=== PATIENT | male | born 1955 | race Caucasian/White ===

== ENCOUNTER 2019-07-10 23:36 | Inpatient (IN) | payer OTHER ==
[2019-07-10 23:42] VITALS: BMI 29.7
[2019-07-11] MEDS: Ondansetron PF 4 MG/2 ML Vial IVP PRN (03:05)
[2019-07-11] MEDS: Morphine 4 MG/ML VIAL SLOW IVP PRN ×3 (03:06→19:51)
[2019-07-11] MEDS: Lactated Ringer's 1,000 ML IV SCH ×2 (03:07→07:57)
[2019-07-11] MEDS ORDERED: Morphine 2 MG/ML SYRINGE SLOW IVP PRN (08:50)
[2019-07-11] MEDS ORDERED: Acetaminophen 325 MG TAB PO PRN (08:51)
[2019-07-11] MEDS ORDERED: Ondansetron ODT 4 MG TAB PO PRN (08:51)
[2019-07-11] MEDS ORDERED: Senokot S 8.6-50 MG TAB PO PRN (08:51)
[2019-07-11] MEDS ORDERED: Famotidine 20 MG TAB PO SCH (09:00)
[2019-07-11] MEDS ORDERED: Famotidine/PF 20 mg/2ml Vial SLOW IVP SCH (09:00)
[2019-07-11 09:31] LABS: Magnesium 2.1 mg/dL (1.6-2.6); Phosphorus 2.6 mg/dL (2.3-4.7)
[2019-07-11 09:33] LABS: ALT (SGPT) 19 U/L (8-55); AST (SGOT) 14 U/L (5-34); Albumin 3.7 g/dL (3.4-4.8); Alkaline Phosphatase 63 U/L (40-110); Anion Gap 9 mmol/L (10-20); BUN (Urea Nitrogen) 15 mg/dL (8.4-25.7); Bilirubin, Total 0.6 mg/dL (0.2-1.2); Calc. Creatinine Clearance 78 mL/min (70-130); Calcium 8.5 mg/dL (7.8-10.44); Carbon Dioxide 31 mmol/L (23-31); Chloride 102 mmol/L (98-107); Estimated GFR-MDRD 68; Globulin 3.6 g/dL (2.4-3.5); Glucose 106 mg/dL (80-115); Lipase 346 U/L (8-78); Potassium 4.1 mmol/L (3.5-5.1); Protein, Total 7.3 g/dL (5.8-8.1); Sodium 138 mmol/L (136-145)
[2019-07-11] MEDS: Carvedilol 3.125 MG TAB PO SCH ×2 (09:36→20:05)
[2019-07-11 09:37] LABS: #Lymphocytes 0.9 thou/uL (1.20-3.40); #Monocytes 1.1 thou/uL (0.11-0.59); #Neutrophils 9.9 thou/uL (1.40-6.50); %Basophils 0.1 % (0.0-1.0); %Eosinophils 0.1 % (0.0-10.0); %Lymphocytes 7.3 % (21.0-51.0); %Monocytes 9.3 % (0.0-10.0); %Neutrophils 83.1 % (42.0-75.0); Hemoglobin 10.3 g/dL (14.0-18.0); Hypochromia SLIGHT = 6-15 cells (100X) (0-5/hpf); MDiff Complete? YES; Mean Corpuscular Hemoglobin 20.9 pg (27.0-31.0); Mean Corpuscular Volume 67.6 fL (78.0-98.0); Mean Platelet Volume 12.8 fL (7.4-10.4); Microcytosis MODERATE=15-30 cells (100X) (0-5/hpf); Ovalocytes SLIGHT = 2-5 cells (100X) (0-1/hpf); Platelet Count 181 thou/uL (130-400); Platelet Morphology Comment Appears Adequate; Polychromasia SLIGHT = 2-3 cells (100X) (0-2/hpf); RBC Distribution Width 16.8 % (11.5-14.5); Red Blood Cell (RBC) Count 4.93 mill/uL (4.70-6.10); White Blood Cell (WBC) Count 11.9 thou/uL (4.8-10.8)
[2019-07-11] MEDS ORDERED: Dextrose 5 %-0.45 % NaCl 1,000 ML IV SCH (10:00)
--- NOTE | 2019-07-11 10:36 | HP ---
PRIMARY CARE PHYSICIAN: The patient is an inmate. CHIEF COMPLAINT: Abdominal discomfort with rectal bleeding of 2 days duration. HISTORY OF PRESENT ILLNESS: The patient is a 63-year-old male with hemorrhoids, presented to the emergency room at [facility] with above complaints. He was transferred to this facility since there were no beds at [facility]. Over the last 2 days, the patient developed abdominal discomfort that was sudden in onset, progressively getting worse. The pain started after eating at the facility. It was epigastric, radiating to his back. It was moderate to severe in intensity. He had several episodes of vomiting and felt nauseous the whole time. The pain was worse with deep breathing and food. He also noticed some bright red blood when he was having bowel movement on and off over the last 2 days. He also had some abdominal cramping. He had EGD and colonoscopy done in 2012 before he was incarcerated. He stated that the EGD and colonoscopy were in normal limits except for hemorrhoids. He is not sure about any surgery for hemorrhoids. PAST MEDICAL HISTORY: 1. Hypertension. 2. Hemorrhoids. 3. Hyperlipidemia. 4. Chronic anemia. PAST SURGICAL HISTORY: 1. EGD. 2. Colonoscopy. ALLERGIES: NO KNOWN DRUG ALLERGIES. CURRENT HOME MEDICATIONS: 1. Carvedilol 3.125 b.i.d. 2. Hydrochlorothiazide 12.5 daily. FAMILY HISTORY: Positive for mother with stomach cancer and heart disease. SOCIAL HISTORY: The patient has a history of heavy alcohol in the past. He is a former smoker as well. No current use of tobacco, alcohol, or drug use. REVIEW OF SYSTEMS: All other review of systems was reviewed and was found negative. PHYSICAL EXAMINATION: VITAL SIGNS: Vital signs at [facility], temperature 98.7, respirations of 18, pulse rate of 81, blood pressure of 165/85 with pain level of 6/10. GENERAL: A 63-year-old male, in mild distress due to abdominal discomfort. HEENT: Head, atraumatic and normocephalic. Sclerae anicteric. Moist mucous membranes. No oral lesion. NECK: Supple. No JVD. No carotid bruit. LUNGS: Clear to auscultation bilaterally. No wheezing, rales, or rhonchi. HEART: S1 and S2 present. Regular rate and rhythm. No rubs or gallops. ABDOMEN: Soft. Bowel sounds present. There is significant tenderness on palpation in the epigastric area with voluntary guarding. No guarding or rigidity. Rectal examination at the emergency room showed scant amount of brown stool in the rectal vault. EXTREMITIES: No edema or calf tenderness. NEUROLOGIC: Grossly nonfocal. Moves all 4 extremities. PSYCHIATRY: Alert, awake, and oriented x3. SKIN: Warm and dry. LYMPH NODES: No palpable lymph nodes in the neck. PERIPHERAL VASCULAR: Radial pulses palpable bilaterally. MUSCULOSKELETAL: No joint swelling or tenderness. LABORATORY FINDINGS: WBC 11.3 with hemoglobin 10.8, hematocrit 36, platelet 192. Chemistry showed sodium 139, potassium 4.1, chloride 100, bicarb 31, BUN 19, creatinine of 1.3, albumin 3.6, bilirubin 0.5 with AST 25, ALT 41, alkaline phosphatase 79, osmolality 282. Prothrombin time 10.8, INR 1.1. Lipase was 4195. CT scan of the abdomen at [facility] was consistent with acute pancreatitis with possible small hemangioma of the liver. IMPRESSION: 1. Acute pancreatitis of unclear etiology. 2. Rectal bleeding, suspected to be due to hemorrhoids. 3. Chronic hypochromic microcytic anemia. 4. Hypertension. 5. Hyperlipidemia. 6. Suspected small hemangioma of the liver. Primary care physician advised to follow. PLAN: The patient will be monitored on the medical floor. He will be kept n.p.o. We will recheck labs today. We will continue IV fluids. Consult Gastroenterology. IV morphine for pain control. Recheck labs in a.m. Check iron profile. Plan of care was discussed with the patient in detail. He stated understanding. We will also obtain EGD and colonoscopy report from 2012 at outside facility. Job ID: [id number]
[2019-07-11 13:25] LABS: Iron 12 ug/dL (65-175); Iron Binding Capacity, Total 259 mcg/dL (261-462)
[2019-07-11] MEDS: Dextrose 5 % And 0.9 % NaCl 1,000 ML IV SCH ×2 (14:05→21:45)
[2019-07-11] MEDS: Pantoprazole 40 MG VIAL IVP SCH (14:05)
--- NOTE | 2019-07-11 14:49 | ULT ---
Sonogram right upper quadrant HISTORY: Abdominal pain. Pancreatitis. FINDINGS: Shadowing stones are present throughout the gallbladder lumen. A small echogenic focus john g the posterior wall may represent an adherent stone or polyp. Patient was not tender over the gallbladder fossa at the time of the exam. No gallbladder wall thickening or pericholecystic fluid. C ommon duct is 0.5 cm. Liver unremarkable without focal mass or intrahepatic biliary dilatation. No free fluid. Pancreas is obscured by bowel gas. IMPRESSION: Cholelithiasis. No evidence of acute biliary obstruction.
[2019-07-12] MEDS: HYDROcodone/Acetaminophen 5/325 mg Tablet PO PRN ×3 (00:07→18:32)
[2019-07-12] MEDS: Dextrose 5 % And 0.9 % NaCl 1,000 ML IV SCH ×4 (00:08→21:04)
[2019-07-12 06:13] LABS: ALT (SGPT) 14 U/L (8-55); AST (SGOT) 11 U/L (5-34); Albumin 3.2 g/dL (3.4-4.8); Alkaline Phosphatase 57 U/L (40-110); Anion Gap 9 mmol/L (10-20); BUN (Urea Nitrogen) 12 mg/dL (8.4-25.7); Bilirubin, Total 0.6 mg/dL (0.2-1.2); Calc. Creatinine Clearance 83 mL/min (70-130); Calcium 7.8 mg/dL (7.8-10.44); Carbon Dioxide 27 mmol/L (23-31); Chloride 104 mmol/L (98-107); Estimated GFR-MDRD 73; Globulin 3.3 g/dL (2.4-3.5); Glucose 114 mg/dL (80-115); Lipase 104 U/L (8-78); Potassium 3.8 mmol/L (3.5-5.1); Protein, Total 6.5 g/dL (5.8-8.1); Sodium 136 mmol/L (136-145)
[2019-07-12 06:16] LABS: Phosphorus 1.5 mg/dL (2.3-4.7)
[2019-07-12] MEDS ORDERED: Sodium Phosphate 30 MMOL in Sodium Chloride 0.9% 250 ML 250 ML IVPB SCH (06:30)
[2019-07-12 06:40] LABS: #Lymphocytes 1.2 thou/uL (1.20-3.40); #Monocytes 1.4 thou/uL (0.11-0.59); #Neutrophils 8.5 thou/uL (1.40-6.50); %Basophils 0.4 % (0.0-1.0); %Eosinophils 0.4 % (0.0-10.0); %Lymphocytes 10.7 % (21.0-51.0); %Monocytes 12.3 % (0.0-10.0); %Neutrophils 76.2 % (42.0-75.0); Hemoglobin 9.7 g/dL (14.0-18.0); Hypochromia SLIGHT = 6-15 cells (100X) (0-5/hpf); MDiff Complete? YES; Mean Corpuscular HGB CONC 30.8 g/dL (32.0-36.0); Mean Corpuscular Hemoglobin 20.7 pg (27.0-31.0); Mean Corpuscular Volume 67.3 fL (78.0-98.0); Mean Platelet Volume 8.8 fL (7.4-10.4); Microcytosis SLIGHT = 6-15 cells (100X) (0-5/hpf); Platelet Count 185 thou/uL (130-400); RBC Distribution Width 16.6 % (11.5-14.5); Red Blood Cell (RBC) Count 4.69 mill/uL (4.70-6.10); White Blood Cell (WBC) Count 11.2 thou/uL (4.8-10.8)
[2019-07-12] MEDS: Morphine 4 MG/ML VIAL SLOW IVP PRN ×3 (07:18→21:04)
[2019-07-12] MEDS: Ondansetron PF 4 MG/2 ML Vial IVP PRN (07:18)
--- NOTE | 2019-07-12 07:46 | CON ---
DATE OF CONSULTATION: 07/11/2019 HISTORY OF PRESENT ILLNESS: Mr. Dee is a 63-year-old gentleman, incarcerated at [facility], who has became ill about 2 days ago. He reports that he began with nausea and vomiting and epigastric pain and vomited multiple times and he went to the bathroom and had some bright red blood per rectum. His pain radiated from the epigastrium to the back and had several episodes of vomiting. He has noted with eating and with deep breathing the pain has been worse. Presently, he feels about the same, although he is getting up and walk around, he is voiding. He has had no bleeding since admission here. He has had no vomiting since admission here. He denies any prior episodes of pancreatitis. Apparently, a CAT scan at [facility] was done and showed that. He does report he had EGD and colonoscopy in 2012 or 2013 for anemia and bleeding, and was found to have large internal hemorrhoids that possibly were banded because they did bother him for some time. He reports his upper endoscopy was normal. PAST MEDICAL HISTORY: 1. Hypertension. 2. Hemorrhoid disease. 3. Hyperlipidemia. 4. Chronic anemia. PAST SURGICAL HISTORY: EGD and colonoscopy as above. No others. ALLERGIES: NONE KNOWN. MEDICATIONS: In [facility]: 1. Carvedilol. 2. Hydrochlorothiazide. FAMILY HISTORY: Mother with stomach cancer and heart disease. SOCIAL HISTORY: The patient drank alcohol heavily in the past. As he is incarcerated, he does not drink any alcohol now. Previously smoked. Does not smoke now. Denies using drugs now. REVIEW OF SYSTEMS: Negative for dysphagia, odynophagia, melena, hematemesis, fever, chills, or prior pancreatitis. He denies any medication changes. Denies any substance abuse. PRESENT MEDICATIONS: Here: 1. Tylenol. 2. Carvedilol. 3. D5 half-normal saline at 125 an hour. 4. Pepcid 20 IV q.12. 5. P.r.n. morphine. 6. Zofran. 7. Senna. PHYSICAL EXAMINATION: VITAL SIGNS: Temperature is 99 to 98, pulse is 74, blood pressure 160/82. GENERAL: The patient is walking in the room. He is in no distress. HEENT: Oropharynx with no lesions. NECK: Supple without any adenopathy. LUNGS: Clear. HEART: Regular without clicks or murmurs. ABDOMEN: Soft and nontender. EXTREMITIES: No clubbing, cyanosis, or edema. LABORATORY DATA: White count is 11.9, hemoglobin 10, MCV 67, and platelet count 181. Sodium 138, potassium 4.1, BUN and creatinine 15 and 1.09. Bilirubin is 0.4, AST and ALT are 14 and 19, and alkaline phosphatase is 63. Triglycerides 86. Amylase is 504 and lipase is 346. Iron is low at 12, TIBC low at 259. ASSESSMENT: 1. Chronic anemia with history of rectal bleeding, reported colonoscopy and EGD in 2002, with some rectal bleeding after episodes, multiple episodes of vomiting and retching and this seems to have resolved and has been evaluated in the past. 2. Iron deficiency is noted. 3. Mild pancreatitis. Reportedly, this has been shown on CT scan at an outside hospital. Those records unfortunately are not able to be reviewed. We will request those as the electronic medical record is not emergent between the [facility] here in the area. 4. Would change IV fluids to normal saline. 5. Would change H2 roberto to a PPI. Would get an ultrasound of his gallbladder to rule out gallstones. Job ID: [id number]
[2019-07-12] MEDS: Folic Acid 1 MG TAB PO SCH (08:40)
[2019-07-12] MEDS: Carvedilol 3.125 MG TAB PO SCH ×2 (08:40→20:28)
[2019-07-12] MEDS: Pantoprazole 40 MG VIAL IVP SCH (08:40)
[2019-07-12] MEDS: Multivit, Therapeutic 1 TAB PO SCH (08:40)
[2019-07-12] MEDS ORDERED: Labetalol HCl 100 MG/20 ML VIAL SLOW IVP PRN (18:08)
[2019-07-12] MEDS: cloNIDine 0.1 MG TAB PO PRN (18:33)
[2019-07-12 18:42] LABS: Troponin I Less than 0.010 ng/mL (< 0.028)
--- NOTE | 2019-07-12 19:13 | PRG ---
DATE OF SERVICE: 07/12/2019 SUBJECTIVE: Mr. Dee states he still hurts, but he wants to eat something. OBJECTIVE: VITAL SIGNS: Temperature max 99.3, temperature current 98.6. Blood pressure 180/83. GENERAL: He is resting in bed. He does have wrist and ankle cuffs on. He is in no distress. ABDOMEN: Soft. Slightly protuberant. There is no rebound. There is no guarding. LABORATORY DATA: White count 11.2, hemoglobin 9.7, platelet count 185. Sodium 136, potassium 3.8, BUN and creatinine are 12/1.03. Phosphorus 1.5, replace today. Iron 12, TIBC 259, ferritin 43. Albumin is 3.2, protein 6.5, lipase is down to 104. ASSESSMENT: Pancreatitis of unclear etiology. The patient was found to have gallstones on ultrasound. This is likely biliary pancreatitis. He is incarcerated. He did not have a drug screen. He is admitted, so it is unclear if he received any contraband. He did not have an alcohol level drawn as well. At this point in time in light of his pancreatitis, another etiology, and gallstones, I would recommend Surgical consultation for cholecystectomy this admission prior to discharge. Job ID: [id number]
--- NOTE | 2019-07-12 19:20 | PRG ---
DATE OF SERVICE: 07/12/2019 SUBJECTIVE: Mr. Dee has had tube feeds started. He is tolerating that. OBJECTIVE: VITAL SIGNS: Temperature is 98, pulse is 91, blood pressure 174/84. GENERAL: Frail, thin with muscle wasting. ABDOMEN: PEG tube site looks clean and dry. He has some abdominal protuberance. Bowel sounds are positive. There is no discharge from the PEG tube site. LABORATORY DATA: Hemoglobin is 8, platelet count 257, white count 4.9. Basis metabolic profile normal. ASSESSMENT: PEG tube dysfunction, improved with less drainage since replaced with a larger caliber tube. No recommendations for further manipulation of his feeding tube. His feeding tube is working well and at this time, we will sign off. Job ID: [id number]
--- NOTE | 2019-07-12 22:28 | PDOC.HOSPP ---
- Subjective Encounter Date: 07/12/19 Encounter Time: 17:15 Subjective: Patient seen and examined for Acute Pancreatitis. Epigastric pain - 6-01/12. Some nausea. No other complaints. No overnight events - Objective Vital Signs & Weight: Vital Signs (12 hours) Temp Pulse Resp BP BP Pulse Ox 07/12/19 19:23 157/69 H 07/12/19 18:33 182/83 H 07/12/19 18:28 98.6 F 68 20 182/83 H 94 L 07/12/19 17:09 99.3 F 66 18 181/82 H 95 07/12/19 11:46 98.7 F 65 18 169/75 H Weight Weight 178 lb 9.191 oz I&O: 07/11/19 07/12/19 07/13/19 06:59 06:59 06:59 Intake Total 450 1550 1445 Balance 450 1550 1445 Result Diagrams: 07/13/19 05:10 07/13/19 05:10 Radiology Reviewed by me: Yes ([facility] - cholelithiases) EKG Reviewed by me: Yes (SR) Hospitalist ROS - Review of Systems Respiratory: denies: cough, dry, shortness of breath, hemoptysis, SOB with excertion, pleuritic pain, sputum, wheezing, other Cardiovascular: denies: chest pain, palpitations, orthopnea, paroxysmal noc. dyspnea, edema, light headedness, other - Medication Medications: Active Medications Generic Name Dose Route Start Last Admin Trade Name Freq PRN Reason Stop Dose Admin Acetaminophen 650 mg 07/11/19 08:51 07/11/19 20:05 Tylenol PO 650 mg Q4H PRN Administration Headache/Fever/Mild Pain (1-3) Hydrocodone Bitart/Acetaminophen 1 tab 07/11/19 08:51 07/12/19 18:32 Grampian 5/325 PO 1 tab Q6H PRN Administration Moderate Pain (4-6) Carvedilol 3.125 mg 07/11/19 09:00 07/12/19 20:28 Coreg PO 3.125 mg BID BRANDON Administration Clonidine 0.1 mg 07/12/19 18:08 07/12/19 18:33 Catapres PO 0.1 mg Q4H PRN Administration SBP Greater Than 180 Folic Acid 1 mg 07/12/19 09:00 07/12/19 08:40 Folvite PO 1 mg DAILY BRANDON Administration Dextrose/Sodium Chloride 1,000 mls @ 125 mls/hr 07/11/19 13:45 07/12/19 21:04 D5 0.9% Ns IV 1,000 mls .Q8H BRANDON Administration Morphine Sulfate 4 mg 07/11/19 02:56 07/12/19 21:04 Morphine SLOW IVP 4 mg Q4H PRN Administration Severe Pain (7-10) Multivitamins 1 tab 07/12/19 09:00 07/12/19 08:40 Theragran PO 1 tab DAILY BRANDON Administration Ondansetron HCl 4 mg 07/11/19 02:57 07/12/19 07:18 Zofran IVP 4 mg Q6H PRN Administration Nausea/Vomiting Ondansetron HCl 4 mg 07/11/19 08:51 07/11/19 09:35 Zofran Odt PO 4 mg Q6H PRN Administration Nausea/Vomiting Pantoprazole Sodium 40 mg 07/11/19 09:00 07/12/19 08:40 Protonix IVP 40 mg DAILY BRANDON Administration Senna/Docusate Sodium 2 tab 07/11/19 08:51 07/12/19 08:44 Senokot S PO 2 tab BIDPRN PRN Administration Constipation - Exam General Appearance: NAD Heart: RRR, no gallops, no rubs, normal peripheral pulses Respiratory: no wheezes, no rales, no ronchi, normal chest expansion Gastrointestinal: soft, non-tender, non-distended, normal bowel sounds Extremities: no edema Neurological: normal sensation to touch, no weakness, no new deficit Psychiatric: normal affect, A&O x 3 Hosp A/P - Plan DVT proph w/SCDs Acute pancreatitis. Hypophosphatemia Rectal bleeding, suspected to be due to hemorrhoids. Chronic hypochromic microcytic anemia. Hypertension. Hyperlipidemia. Suspected small hemangioma of the liver. Primary care physician advised to follow. Cholelithiases PLAN: Replace electrolytes EKG due to epigastric CP - done - SR Troponins negative Cont IVF/PPI/NPO GI input appreciated
[2019-07-13] MEDS: HYDROcodone/Acetaminophen 5/325 mg Tablet PO PRN (01:34)
[2019-07-13] MEDS: Dextrose 5 % And 0.9 % NaCl 1,000 ML IV SCH ×3 (05:34→21:05)
[2019-07-13 05:53] LABS: ALT (SGPT) 17 U/L (8-55); AST (SGOT) 15 U/L (5-34); Alkaline Phosphatase 64 U/L (40-110); Anion Gap 8 mmol/L (10-20); BUN (Urea Nitrogen) 8 mg/dL (8.4-25.7); Bilirubin, Total 0.4 mg/dL (0.2-1.2); Calc. Creatinine Clearance 94 mL/min (70-130); Calcium 7.6 mg/dL (7.8-10.44); Carbon Dioxide 27 mmol/L (23-31); Chloride 105 mmol/L (98-107); Estimated GFR-MDRD 84; Globulin 3.2 g/dL (2.4-3.5); Glucose 111 mg/dL (80-115); Lipase 120 U/L (8-78); Magnesium 1.8 mg/dL (1.6-2.6); Potassium 3.3 mmol/L (3.5-5.1); Protein, Total 6.2 g/dL (5.8-8.1); Sodium 137 mmol/L (136-145)
[2019-07-13 05:59] LABS: Phosphorus 1.7 mg/dL (2.3-4.7)
[2019-07-13] MEDS ORDERED: Potassium Phosphate 30 MMOL in Sodium Chloride 0.9% 500 ML IVPB SCH (06:15)
[2019-07-13 06:41] LABS: #Basophils 0.1 thou/uL (0.0-0.2); #Eosinphils 0.2 thou/uL (0.0-0.7); #Lymphocytes 1.2 thou/uL (1.20-3.40); #Monocytes 1.2 thou/uL (0.11-0.59); #Neutrophils 7.7 thou/uL (1.40-6.50); %Basophils 0.5 % (0.0-1.0); %Eosinophils 1.9 % (0.0-10.0); %Lymphocytes 11.7 % (21.0-51.0); %Monocytes 11.4 % (0.0-10.0); %Neutrophils 74.5 % (42.0-75.0); Hemoglobin 9.1 g/dL (14.0-18.0); Hypochromia MODERATE=16-30 cells (100X) (0-5/hpf); MDiff Complete? YES; Mean Corpuscular Volume 67.6 fL (78.0-98.0); Mean Platelet Volume 10.9 fL (7.4-10.4); Microcytosis MODERATE=15-30 cells (100X) (0-5/hpf); Ovalocytes SLIGHT = 2-5 cells (100X) (0-1/hpf); Platelet Count 161 thou/uL (130-400); Platelet Morphology Comment Appears Adequate; Polychromasia SLIGHT = 2-3 cells (100X) (0-2/hpf); RBC Distribution Width 16.7 % (11.5-14.5); Red Blood Cell (RBC) Count 4.35 mill/uL (4.70-6.10); White Blood Cell (WBC) Count 10.3 thou/uL (4.8-10.8)
[2019-07-13] MEDS: Morphine 4 MG/ML VIAL SLOW IVP PRN (06:48)
[2019-07-13] MEDS: Pantoprazole 40 MG VIAL IVP SCH (08:16)
[2019-07-13] MEDS: Multivit, Therapeutic 1 TAB PO SCH (08:16)
[2019-07-13] MEDS: Folic Acid 1 MG TAB PO SCH (08:16)
[2019-07-13] MEDS: Carvedilol 3.125 MG TAB PO SCH ×2 (08:16→21:04)
[2019-07-13] MEDS ORDERED: Magnesium 2 GM/50 ML 2 GM in Premix Bag 1 BAG IVPB SCH (09:15)
[2019-07-13] MEDS ORDERED: GoLYTELY 4,000 ml Bottle PO SCH (12:00)
[2019-07-13] MEDS: cloNIDine 0.1 MG TAB PO PRN (17:44)
--- NOTE | 2019-07-13 20:05 | PDOC.HOSPP ---
- Subjective Encounter Date: 07/13/19 Encounter Time: 17:30 Subjective: Patient seen and examined for rectal bleeding/Pancreatitis. Abd pain same. No nausea. No new complaints. No overnight events - Objective Vital Signs & Weight: Vital Signs (12 hours) Temp Pulse Resp BP BP BP Pulse Ox 07/13/19 19:49 97.7 F 64 19 175/81 H 94 L 07/13/19 19:37 97.8 F 98 18 132/59 L 80 L 07/13/19 19:09 64 185/80 H 07/13/19 18:52 185/80 H 07/13/19 17:44 206/87 H 07/13/19 16:17 98.2 F 62 16 183/80 H 07/13/19 11:34 99.3 F 75 16 170/71 H 95 Weight Weight 178 lb 9.191 oz I&O: 07/12/19 07/13/19 07/14/19 06:59 06:59 06:59 Intake Total 1550 1445 2825 Balance 1550 1445 2825 Result Diagrams: 07/13/19 05:10 07/13/19 05:10 Additional Labs: Laboratory Tests 07/12/19 07/13/19 05:26 05:10 Phosphorus 1.5 L 1.7 L Hospitalist ROS - Review of Systems Respiratory: denies: cough, dry, shortness of breath, hemoptysis, SOB with excertion, pleuritic pain, sputum, wheezing, other Cardiovascular: denies: chest pain, palpitations, orthopnea, paroxysmal noc. dyspnea, edema, light headedness, other - Medication Medications: Active Medications Generic Name Dose Route Start Last Admin Trade Name Freq PRN Reason Stop Dose Admin Acetaminophen 650 mg 07/11/19 08:51 07/11/19 20:05 Tylenol PO 650 mg Q4H PRN Administration Headache/Fever/Mild Pain (1-3) Hydrocodone Bitart/Acetaminophen 1 tab 07/11/19 08:51 07/13/19 01:34 Grannis 5/325 PO 1 tab Q6H PRN Administration Moderate Pain (4-6) Carvedilol 3.125 mg 07/11/19 09:00 07/13/19 08:16 Coreg PO 3.125 mg BID BRANDON Administration Clonidine 0.1 mg 07/12/19 18:08 07/13/19 17:44 Catapres PO 0.1 mg Q4H PRN Administration SBP Greater Than 180 Folic Acid 1 mg 07/12/19 09:00 07/13/19 08:16 Folvite PO 1 mg DAILY BRANDON Administration Dextrose/Sodium Chloride 1,000 mls @ 125 mls/hr 07/11/19 13:45 07/13/19 14:53 D5 0.9% Ns IV 1,000 mls .Q8H BRANDON Administration Labetalol HCl 10 mg 07/12/19 18:08 07/13/19 19:09 Normodyne SLOW IVP 10 mg Q4H PRN Administration Systolic BP > 180 Morphine Sulfate 4 mg 07/11/19 02:56 07/13/19 06:48 Morphine SLOW IVP 4 mg Q4H PRN Administration Severe Pain (7-10) Multivitamins 1 tab 07/12/19 09:00 07/13/19 08:16 Theragran PO 1 tab DAILY BRANDON Administration Ondansetron HCl 4 mg 07/11/19 02:57 07/12/19 07:18 Zofran IVP 4 mg Q6H PRN Administration Nausea/Vomiting Ondansetron HCl 4 mg 07/11/19 08:51 07/11/19 09:35 Zofran Odt PO 4 mg Q6H PRN Administration Nausea/Vomiting Pantoprazole Sodium 40 mg 07/11/19 09:00 07/13/19 08:16 Protonix IVP 40 mg DAILY BRANDON Administration Senna/Docusate Sodium 2 tab 07/11/19 08:51 07/12/19 08:44 Senokot S PO 2 tab BIDPRN PRN Administration Constipation - Exam General Appearance: awake alert Heart: RRR, no gallops Respiratory: no wheezes, no rales, no ronchi Gastrointestinal: non-distended, normal bowel sounds, tender to palpation Extremities: no cyanosis, no edema Psychiatric: A&O x 3 Hosp A/P - Plan DVT proph w/SCDs Acute pancreatitis. Hypophosphatemia Rectal bleeding, suspected to be due to hemorrhoids. Chronic hypochromic microcytic anemia. Hypertension. Hyperlipidemia. Suspected small hemangioma of the liver. Primary care physician advised to follow. Cholelithiases PLAN: Replace Phosphorus EGD/Colon in AM Surgery input appreciated Cont IVF/PPI/NPO AM labs
--- NOTE | 2019-07-13 20:10 | PRG ---
DATE OF SERVICE: 07/13/2019 SUBJECTIVE: Mr. Dee is seen by Surgery today. They requested a GI workup for his iron deficiency anemia, although this has been done in the past and this has been chronic for many years. He has had some rectal bleeding which appears to be hemorrhoidal. He says no more pain. OBJECTIVE: VITAL SIGNS: Temperature 97.8, blood pressure 132/59. GENERAL: The patient is sitting comfortably on the toilet. He is in no distress. LABORATORY DATA: Today, white count 10.3, hemoglobin 9.1, platelet count 161, MCV 67. BUN and creatinine are 8.9 and 0.9. Calcium was 7.6, phosphorus was magnesium 1.6. Albumin is 3. Lipase is down to 120. ASSESSMENT: 1. Pancreatitis, likely biliary as he has gallstones. 2. Chronic rectal bleeding with workup in the past revealing internal hemorrhoid. Surgery request re-evaluation for his iron deficiency before laparoscopic cholecystectomy. PLAN: EGD and colonoscopy tomorrow. After that is complete, he can undergo a cholecystectomy for biliary pancreatitis. Job ID: [id number]
--- NOTE | 2019-07-13 22:43 | CON ---
DATE OF CONSULTATION: 07/13/2019 REQUESTING PHYSICIAN: Dr. Isaiah Tavares. HISTORY OF PRESENT ILLNESS: A 63-year-old man, an inmate of a correctional facility, who was admitted with rectal bleeding as well as some vague abdominal discomfort of 2 days duration. The pain started after eating at the correctional facility and was localized to the epigastrium radiating to his back. He rated the pain at the time at 10/10. He admitted to some nausea and several episodes of nonbilious emesis. Currently, he denies any nausea, although he rates his pain at 5/10. He reports passing bloody stool per rectum yesterday and to a lesser extent this morning. He denies any chest pain, dyspnea, or syncope. He has a history of rectal bleeding and did have a colonoscopy almost 7 years ago at which time he was said to have some internal hemorrhoids, which may have bled at the time. He has not had any other endoscopies since. The patient denies any unexplained weight loss. PAST MEDICAL HISTORY: Pertinent for microcytic anemia, essential hypertension, hyperlipidemia, and hemorrhoids. PAST SURGICAL HISTORY: Pertinent for EGD and colonoscopy almost 7 years ago. He denies any abdominal operations. SOCIAL HISTORY: He is a current inmate of a correctional facility. He has a history of alcohol abuse and used to smoke. He denies any illicit drug abuse. FAMILY HISTORY: Noncontributory for this patient's age. PRE-HOSPITAL MEDICATIONS: Includes carvedilol and hydrochlorothiazide 3.125 mg/12.5 mg p.o. daily, respectively. ALLERGIES: THE PATIENT HAS NO KNOWN DRUG ALLERGIES. REVIEW OF SYSTEMS: Ten-point review of system is essentially unremarkable except as stated in past medical history and chief complaint. PHYSICAL EXAMINATION: GENERAL: This reveals a 63-year-old normally developed man, who is otherwise coherent, interactive and appears stated age. The patient is alert and oriented x3, appears to be in no acute distress at the time of my evaluation. VITAL SIGNS: Includes blood pressure of 170/71, pulse 75, respiratory rate 16, temperature is 99.3 degrees Fahrenheit, oxygen saturation is 95% on room air. HEENT: Reveals normocephalic and atraumatic. Pupils are equal, round, reactive to light and accommodation. He has no scleral icterus present. HEART: Reveals regular rate and rhythm. No murmurs or gallops auscultated. LUNGS: Clear to auscultation bilaterally. His breathing is regular and nonlabored. ABDOMEN: Soft with moderate tenderness in the right upper quadrant. Negative Fernandez sign. Liver and spleen otherwise nonpalpable below costal margin. NEUROLOGIC: Reveals no focal deficits present. LABORATORY FINDINGS: Today includes a CBC with 10,300 white blood cells. This is in contrast to 11,900 white blood cells 2 days previously. Hemoglobin and hematocrit are 9.1 and 29.4 respectively. MCV is quite low at 67.6. Platelet count is stable at 161,000. Metabolic profile; sodium 137, potassium 3.3, chloride is 105, bicarb is 27, BUN is 8, creatinine 0.91, glucose is 111, magnesium is 1.8, and phosphorus is 1.7. Serum amylase and lipase yesterday were noted at 209 and 104 respectively. Today's lipase is stable at 120. AST and ALT yesterday noted at 11 and 14 respectively. Alkaline phosphatase is normal also at 57. Total bilirubin normal at 0.6. IMAGIN. I have personally reviewed the abdominal ultrasound, which is remarkable for intraluminal gallstone with no pericholecystic fluid or gallbladder wall thickening present. 2. Common bile duct is normal in diameter for this patient's age at 5 mm. IMPRESSIONS: 1. Rectal bleeding associated with microcytic anemia. Etiology is undetermined. 2. Cholelithiasis. No radiographic evidence of acute cholecystitis. RECOMMENDATIONS: I have discussed with the groutman with respect to the microcytic anemia and current rectal bleeding, which will warrant further workup to determine the etiology of the anemia and an acute bleed. Following this workup, we will give consideration to laparoscopic cholecystectomy. There is no acute surgical indication for this patient at this time. Above findings and plan discussed with the patient, who indicates understanding of information given. I have answered his questions. Thank you again, Dr. Tavares for allowing me the opportunity to participate in care of this patient. Job ID: [id number]
[2019-07-14] MEDS: HYDROcodone/Acetaminophen 5/325 mg Tablet PO PRN ×2 (00:16→11:40)
[2019-07-14] MEDS: Dextrose 5 % And 0.9 % NaCl 1,000 ML IV SCH (04:20)
[2019-07-14] MEDS: Carvedilol 3.125 MG TAB PO SCH ×2 (05:16→21:35)
[2019-07-14 06:10] LABS: #Eosinphils 0.3 thou/uL (0.0-0.7); #Lymphocytes 1.2 thou/uL (1.20-3.40); #Monocytes 1.1 thou/uL (0.11-0.59); #Neutrophils 5.9 thou/uL (1.40-6.50); %Basophils 0.2 % (0.0-1.0); %Eosinophils 3.6 % (0.0-10.0); %Lymphocytes 14.3 % (21.0-51.0); %Monocytes 12.9 % (0.0-10.0); %Neutrophils 69.1 % (42.0-75.0); Hemoglobin 8.7 g/dL (14.0-18.0); Mean Corpuscular HGB CONC 30.6 g/dL (32.0-36.0); Mean Corpuscular Hemoglobin 20.8 pg (27.0-31.0); Mean Corpuscular Volume 68.2 fL (78.0-98.0); Mean Platelet Volume 11.8 fL (7.4-10.4); Platelet Count 168 thou/uL (130-400); RBC Distribution Width 16.4 % (11.5-14.5); Red Blood Cell (RBC) Count 4.17 mill/uL (4.70-6.10); White Blood Cell (WBC) Count 8.6 thou/uL (4.8-10.8)
[2019-07-14 06:38] LABS: ALT (SGPT) 17 U/L (8-55); AST (SGOT) 15 U/L (5-34); Albumin 2.9 g/dL (3.4-4.8); Alkaline Phosphatase 69 U/L (40-110); Anion Gap 6 mmol/L (10-20); BUN (Urea Nitrogen) 8 mg/dL (8.4-25.7); Bilirubin, Total 0.6 mg/dL (0.2-1.2); Calc. Creatinine Clearance 101 mL/min (70-130); Calcium 7.3 mg/dL (7.8-10.44); Carbon Dioxide 29 mmol/L (23-31); Chloride 104 mmol/L (98-107); Estimated GFR-MDRD Greater than 90; Globulin 3.1 g/dL (2.4-3.5); Glucose 98 mg/dL (80-115); Lipase 109 U/L (8-78); Magnesium 2.1 mg/dL (1.6-2.6); Phosphorus 2.1 mg/dL (2.3-4.7); Potassium 3.1 mmol/L (3.5-5.1); Sodium 136 mmol/L (136-145)
[2019-07-14] MEDS ORDERED: Potassium Phosphate 30 MMOL in Sodium Chloride 0.9% 500 ML IVPB SCH (08:15)
[2019-07-14] MEDS: Pantoprazole 40 MG VIAL IVP SCH (08:18)
[2019-07-14] MEDS: Folic Acid 1 MG TAB PO SCH (08:18)
[2019-07-14] MEDS: Multivit, Therapeutic 1 TAB PO SCH (08:18)
[2019-07-14] MEDS ORDERED: Lidocaine 1% PF 5 ML VIAL ONE (09:32)
[2019-07-14] MEDS ORDERED: Rocuronium Bromide 10 MG/ML (10ML VIAL) ONE (09:32)
[2019-07-14] MEDS ORDERED: PROPOFOL 200 MG/20 ML VIAL ONE ×2 (09:32)
[2019-07-14] MEDS: D5 1/2 NS w/20 mEq KCL 1,000 ML IV SCH ×2 (09:32→17:28)
[2019-07-14] MEDS ORDERED: Ondansetron PF 4 MG/2 ML Vial ONE (09:32)
[2019-07-14] MEDS ORDERED: Ketorolac Tromethamine 30 MG/ML VIAL ONE (09:32)
[2019-07-14] MEDS ORDERED: CEFAZOLIN 2 GM in Premix Bag 1 BAG IVPB SCH (13:15)
[2019-07-14] MEDS ORDERED: Fentanyl 100 MCG/2 ML VIAL ONE ×2 (13:15→15:12)
[2019-07-14] MEDS ORDERED: Bupivacaine 0.25% HCL 30 ML VIAL ONE (13:18)
[2019-07-14] MEDS ORDERED: Lidocaine 1% w/Epinephrine 1:100K 20 ML VIAL ONE (13:18)
[2019-07-14] MEDS ORDERED: SUGAMMADEX SODIUM 200 MG/2 ML VIAL ONE (14:54)
[2019-07-14] MEDS ORDERED: traMADol HCl 50 MG TAB PO PRN ×2 (14:59)
[2019-07-14] MEDS ORDERED: Ondansetron HCl/PF 4 MG/2 ML Vial IVP PRN (15:13)
[2019-07-14] MEDS ORDERED: Promethazine HCl 25 MG/ML VIAL SLOW IVP PRN (15:13)
[2019-07-14] MEDS ORDERED: Promethazine HCl 25 MG/ML VIAL IM PRN (15:13)
--- NOTE | 2019-07-14 16:01 | OP ---
DATE OF PROCEDURE: 07/14/2019 PREPROCEDURE DIAGNOSES: 1. Microcytic anemia. 2. Bright red rectal bleeding. 3. The patient relates history of being diagnosed with hemorrhoids on colonoscopy 7 years ago. 4. General Surgery wanted the patient to have endoscopy before cholecystectomy for presumptive gallstone pancreatitis. 5. Documented iron deficiency by labs. POSTPROCEDURE DIAGNOSES: 1. Normal esophagogastroduodenoscopy. 2. Colonoscopy notable for large internal hemorrhoids, friable, source of rectal bleeding. RECOMMENDATIONS: 1. Fiber supplementation, sitz baths, and topical steroids. This can be further addressed in the outpatient setting at [facility] with his primary care. If they want to consider an elective hemorrhoidectomy in the future, they can arrange that. 2. Would still recommend strong consideration of laparoscopic cholecystectomy for pancreatitis of unclear etiology in the setting of gallstones and no other risk factors for pancreatitis. ANESTHESIA: TIVA. PROCEDURE IN DETAIL: After the patient was informed of the risks, benefits, and possible complications of endoscopy including perforation, bleeding, reaction to medication, and aspiration, informed consent was obtained. The patient was brought to the endoscopy suite, where he was sedated in gradual fashion. Once he was comfortable, a bite block was placed inside the orifice. The endoscope was advanced to the esophagus, stomach, and second and third portions of the duodenum was removed. There was good visualization of the mucosa. The esophagus, stomach, and duodenum in 3rd portion were normal. Retroflexed views in the stomach were normal. Scope was removed. The patient was returned to the room. Rectal examination was performed. The endoscope was advanced into the anal canal through the colon to the cecum, which was identified by ileocecal valve and appendiceal orifice. The prep was good. There were no masses, lesions, or polyps in the rectum. There was a little bit of fresh blood. Retroflexed views revealed inflamed and large hypertrophic internal hemorrhoids. There was no evidence of dysplasia or malignancy. Full review showed no evidence of other lesions or anal canal lesions or perianal lesions. The scope was removed. The patient tolerated the procedure well. There were no complications. At this time, we will sign off from a GI standpoint. If I could be of any further assistance in the patient's care, please do not hesitate to contact me. Job ID: [id number]
[2019-07-14] MEDS: Acetaminophen 325 MG TAB PO SCH ×2 (17:00→21:35)
[2019-07-14] MEDS: Ketorolac Tromethamine 30 MG/ML VIAL IVP SCH (17:01)
--- NOTE | 2019-07-14 18:45 | PDOC.HOSPP ---
- Subjective Encounter Date: 07/14/19 Encounter Time: 13:00 Subjective: Patient seen and examined for Acute Pancreatitis. Abd pain somewhat better. No Nausea. No other complaints. No overnight events - Objective Vital Signs & Weight: Vital Signs (12 hours) Temp Pulse Resp BP BP Pulse Ox 07/14/19 16:02 97.6 F 62 20 169/83 H 94 L 07/14/19 11:33 98.8 F 64 18 149/80 H 97 07/14/19 08:22 93 L 07/14/19 08:10 93 L 07/14/19 07:00 99.0 F 68 18 161/89 H 93 L Weight Weight 178 lb 9.191 oz I&O: 07/13/19 07/14/19 07/15/19 06:59 06:59 06:59 Intake Total 1445 2825 1510 Balance 1445 2825 1510 Result Diagrams: 07/14/19 05:16 07/14/19 05:16 Hospitalist ROS - Review of Systems Respiratory: denies: cough, dry, shortness of breath, hemoptysis, SOB with excertion, pleuritic pain, sputum, wheezing, other Cardiovascular: denies: chest pain, palpitations, orthopnea, paroxysmal noc. dyspnea, edema, light headedness, other - Medication Medications: Active Medications Generic Name Dose Route Start Last Admin Trade Name Freq PRN Reason Stop Dose Admin Acetaminophen 650 mg 07/14/19 17:00 07/14/19 17:00 Tylenol PO 650 mg Q4HR BRANDON Administration Carvedilol 3.125 mg 07/11/19 09:00 07/14/19 05:16 Coreg PO 3.125 mg BID BRANDON Administration Clonidine 0.1 mg 07/12/19 18:08 07/13/19 17:44 Catapres PO 0.1 mg Q4H PRN Administration SBP Greater Than 180 Folic Acid 1 mg 07/12/19 09:00 07/14/19 08:18 Folvite PO 1 mg DAILY BRANDON Administration Potassium Chloride/Dextrose/Sod Cl 1,000 mls @ 100 mls/hr 07/14/19 08:15 03/25 17:28 D5 1/2 Ns W/20 Meq Kcl IV Not Given .Q10H BRANDON Ketorolac Tromethamine 15 mg 07/14/19 18:00 07/14/19 17:01 Toradol IVP 07/19/19 18:01 15 mg Q6HR BRANDON Administration Labetalol HCl 10 mg 07/12/19 18:08 07/13/19 19:09 Normodyne SLOW IVP 10 mg Q4H PRN Administration Systolic BP > 180 Morphine Sulfate 4 mg 07/11/19 02:56 07/13/19 06:48 Morphine SLOW IVP 4 mg Q4H PRN Administration Severe Pain (7-10) Multivitamins 1 tab 07/12/19 09:00 07/14/19 08:18 Theragran PO 1 tab DAILY BRANDON Administration Ondansetron HCl 4 mg 07/11/19 02:57 07/12/19 07:18 Zofran IVP 4 mg Q6H PRN Administration Nausea/Vomiting Ondansetron HCl 4 mg 07/11/19 08:51 07/11/19 09:35 Zofran Odt PO 4 mg Q6H PRN Administration Nausea/Vomiting Pantoprazole Sodium 40 mg 07/11/19 09:00 07/14/19 08:18 Protonix IVP 40 mg DAILY BRANDON Administration Senna/Docusate Sodium 2 tab 07/11/19 08:51 07/12/19 08:44 Senokot S PO 2 tab BIDPRN PRN Administration Constipation - Exam General Appearance: NAD Neck: supple, no JVD Heart: RRR, no gallops Respiratory: CTAB, no wheezes, no ronchi Gastrointestinal: soft, normal bowel sounds, no guarding, no rigidity, tender to palpation Extremities: no cyanosis Hosp A/P - Plan DVT proph w/SCDs Acute pancreatitis - prob due to gall stone Hypophosphatemia/Hypokalemia Rectal bleeding due to internal hemorrhoids. Chronic hypochromic microcytic anemia. Hypertension. Hyperlipidemia. Suspected small hemangioma of the liver. PCP to follow. Cholelithiases PLAN: Replace electrolytes Adjust IVF s/p EGD/Colon Cholecystectomy today Cont PPI AM labs
[2019-07-14] MEDS: Hydrocortisone Acetate 25 MG Suppository PR SCH (21:40)
--- NOTE | 2019-07-15 00:33 | PRG ---
DATE OF SERVICE: 07/14/2019 SUBJECTIVE: Status post cholecystectomy today, improving. Passing flatus. No bowel movement. Pain is tolerated. OBJECTIVE: ABDOMEN: Soft and nontender. Incisions are clean and dry. Hemodynamically stable. VITAL SIGNS: Afebrile, 97.8, heart rate 70, breathing 16 times per minute, 94%. Blood pressure slightly elevated at 177/82. GENERAL: The patient is awake, oriented. Again, pain is controlled. PLAN: Continue current regimen. We will follow up again in the morning. Job ID: [id number]
[2019-07-15] MEDS: Acetaminophen 325 MG TAB PO SCH ×5 (00:42→17:09)
[2019-07-15] MEDS: Ketorolac Tromethamine 30 MG/ML VIAL IVP SCH ×4 (00:42→17:06)
[2019-07-15] MEDS: D5 1/2 NS w/20 mEq KCL 1,000 ML IV SCH ×3 (05:13→17:07)
[2019-07-15 05:41] LABS: #Eosinphils 0.4 thou/uL (0.0-0.7); #Lymphocytes 1.3 thou/uL (1.20-3.40); #Neutrophils 4.6 thou/uL (1.40-6.50); %Basophils 0.6 % (0.0-1.0); %Eosinophils 4.9 % (0.0-10.0); %Lymphocytes 17.8 % (21.0-51.0); %Monocytes 13.1 % (0.0-10.0); %Neutrophils 63.6 % (42.0-75.0); Hemoglobin 8.3 g/dL (14.0-18.0); Mean Corpuscular HGB CONC 30.8 g/dL (32.0-36.0); Mean Corpuscular Hemoglobin 20.8 pg (27.0-31.0); Mean Corpuscular Volume 67.5 fL (78.0-98.0); Mean Platelet Volume 13.9 fL (7.4-10.4); Platelet Count 160 thou/uL (130-400); RBC Distribution Width 16.5 % (11.5-14.5); Red Blood Cell (RBC) Count 4.01 mill/uL (4.70-6.10); White Blood Cell (WBC) Count 7.3 thou/uL (4.8-10.8)
[2019-07-15 06:07] LABS: ALT (SGPT) 37 U/L (8-55); AST (SGOT) 36 U/L (5-34); Albumin 2.8 g/dL (3.4-4.8); Alkaline Phosphatase 73 U/L (40-110); Anion Gap 8 mmol/L (10-20); BUN (Urea Nitrogen) 6 mg/dL (8.4-25.7); Bilirubin, Total 0.6 mg/dL (0.2-1.2); Calc. Creatinine Clearance 93 mL/min (70-130); Calcium 7.4 mg/dL (7.8-10.44); Carbon Dioxide 29 mmol/L (23-31); Chloride 105 mmol/L (98-107); Estimated GFR-MDRD 83; Globulin 3.1 g/dL (2.4-3.5); Glucose 100 mg/dL (80-115); Lipase 103 U/L (8-78); Magnesium 1.9 mg/dL (1.6-2.6); Phosphorus 2.9 mg/dL (2.3-4.7); Potassium 3.6 mmol/L (3.5-5.1); Protein, Total 5.9 g/dL (5.8-8.1); Sodium 138 mmol/L (136-145)
[2019-07-15 07:18] VITALS: BP 154/80; TEMP 98.5
[2019-07-15] MEDS ORDERED: Citrucel 500 MG TAB PO SCH (09:00)
--- NOTE | 2019-07-15 09:07 | OP ---
DATE OF PROCEDURE: 07/14/2019 PREOPERATIVE DIAGNOSES: 1. Acute cholecystitis. 2. Cholelithiasis. POSTOPERATIVE DIAGNOSES: 1. Acute cholecystitis. 2. Cholelithiasis. OPERATION PERFORMED: Laparoscopic cholecystectomy. ANESTHESIA: General endotracheal. ESTIMATED BLOOD LOSS: 5 mL. FLUIDS GIVEN: 600 mL crystalloids. COUNTS: Sponge and instrument counts were verified as correct x2. COMPLICATIONS: None apparent at the time of operation. INDICATIONS FOR OPERATION: A 63-year-old man, an inmate of a correctional facility, presented with abdominal pain in the right upper quadrant. Clinical radiographic examination was consistent with acute gallstone pancreatitis, which has since resolved on conservative management. The patient was brought to the operating room today for laparoscopic cholecystectomy. Findings are consistent with dilated gallbladder in the usual anatomic location, partially encased by omental adhesions. DESCRIPTION OF PROCEDURE: Informed consent was obtained from the patient. He was brought to the operating room and placed in supine position. Following general anesthesia, abdomen was sterilely prepped and draped in the usual fashion. The skin below the umbilicus was infiltrated with 0.25% Marcaine with epinephrine. A small curvilinear infraumbilical incision was made using 11 scalpel. Umbilical stalk was grasped with Salma and elevated. Veress needle was inserted through the incision and placed in the peritoneal cavity, through which the abdomen was insufflated with 3 L of CO2 gas. Intraabdominal pressure noted at 2 mmHg. Following abdominal insufflation, Veress needle was removed and a 5-mm trocar introduced using a Visiport under laparoscopy. Laparoscopy confirmed proper placement of the port. No injuries to underlying structures. Additional laparoscopy revealed the gallbladder in the usual anatomic location, partially encased by omental adhesions. Under direct laparoscopy, a 12-mm epigastric and two 5-mm right lateral subcostal ports were placed after the overlying skin infiltrated with 0.25% Marcaine with epinephrine. Appropriate incision was made. The patient was placed in a reverse Trendelenburg position, rotated to his left. I introduced a [place] dissector with cautery, using this to take down omental adhesions. A Prestige grasper introduced through the right lateral subcostal port was used to grasp the gallbladder at the fundus and this was elevated. A second Prestige grasper introduced through the right medial subcostal port, grasping the Viky pouch, which was retracted laterally. Cystic duct carefully dissected free from surrounding structures and divided between clips. Two clips applied proximally and one clip at the junction of the cystic duct and gallbladder. The cystic artery was also dissected free from surrounding structures and divided between clips in a similar fashion. The gallbladder itself was removed from the liver bed using cautery with good hemostasis. Gallbladder was delivered of the abdominal cavity using an EndoCatch. Operative site was inspected for good hemostasis. Finding no other pathology. Laparoscopy was terminated. Fascia of the epigastric port was closed using 0 Vicryl suture and Endoclosure device on the laparoscopy. The abdomen was desufflated. All sponges, instruments, and ports were accounted for x2. Skin incisions were closed using 4-0 Monocryl suture in a subcuticular fashion. Dermabond was applied over incisional closure. The patient tolerated the operation without any apparent complication and was returned to recovery room in satisfactory condition. Job ID: [id number]
[2019-07-15] MEDS: Carvedilol 3.125 MG TAB PO SCH (09:40)
[2019-07-15] MEDS: Hydrocortisone Acetate 25 MG Suppository PR SCH (09:41)
[2019-07-15] MEDS: Multivit, Therapeutic 1 TAB PO SCH (09:41)
[2019-07-15] MEDS: Folic Acid 1 MG TAB PO SCH (09:41)
--- NOTE | 2019-07-15 10:53 | PRG ---
DATE OF SERVICE: 07/15/2019 SUBJECTIVE: Mr. Dee is a 63-year-old, status post cholecystectomy, postop day #1. The patient reports doing good. Pain is well controlled. The patient has been passing gas, but not yet to have bowel. OBJECTIVE: VITAL SIGNS: Stable. GENERAL: Currently, the patient is lying in bed with no acute respiratory distress. ABDOMEN: Soft, nondistended. No sign of peritonitis. PLAN: Continue supportive care. Continue pain control. From a General Surgery standpoint, the patient is good to be discharged, it is up to primary team to discharge the patient at this point. The patient will be following up with Dr. Hurst in 2 weeks. The patient to call for followup appointment. Job ID: [id number]
--- NOTE | 2019-07-15 13:49 | DIS ---
DATE OF ADMISSION: 07/10/2019 DATE OF DISCHARGE: 07/15/2019 DISCHARGE DISPOSITION: The patient is an inmate. DISCHARGE MEDICATIONS: 1. Citrucel 500 mg daily. 2. Anusol suppository twice daily for 2 weeks. 3. Multivitamin. 4. Folic acid daily. The patient was advised to resume carvedilol and hydrochlorothiazide. Repeat basic metabolic profile after 1 week is recommended. Primary care physician advised to follow. The patient was seen and examined on the day of discharge. Denies any new complaints. No chest pain, shortness of breath, palpitations, nausea, or vomiting reported. BRIEF HOSPITAL COURSE: The patient is a 63-year-old male with internal hemorrhoids in the past, presented to the hospital with abdominal discomfort along with rectal bleeding of 2 days duration. He was found to have a lipase of 346. He was admitted to the hospital with a diagnosis of acute pancreatitis. His abdominal ultrasound was positive for cholelithiasis without any evidence of biliary obstruction. He was evaluated by General Surgery as well as Gastroenterology. His abdominal pain gradually improved with n.p.o. status. Due to rectal bleeding as well as persistent abdominal discomfort, he underwent EGD and colonoscopy. EGD was normal. Colonoscopy was consistent with large internal hemorrhoids, which were friable. He also underwent laparoscopic cholecystectomy on the same day. He was monitored overnight and is tolerating regular diet. He has been cleared by consultants for discharge. FINAL DIAGNOSES: 1. Abdominal pain secondary to gallstone pancreatitis. 2. Rectal bleeding secondary to internal hemorrhoids. 3. Multiple electrolyte abnormalities including hypokalemia and hypophosphatemia. 4. Acute blood loss anemia secondary to rectal bleeding (present on admission). 5. Hypertension. 6. Hyperlipidemia. 7. Questionable small hemangioma of the liver. Primary care physician advised to follow. 8. History of chronic anemia. Total time coordinating the discharge of this patient was 35 minutes. Job ID: [id number]
== END 2019-07-15 17:21 | DRG 417 ==
LOC: T4-B 23:36 → EEVIPCON 23:36
PROVIDERS: ADMIT Internal Medicine; ATTEND Internal Medicine
PROC: 0FT44ZZ Resection of Gallbladder, Percutaneous Endoscopic Approach (ICD-10-PCS; principal; 2019-07-14)
PROC: 0DJ08ZZ Inspection of Upper Intestinal Tract, Via Natural or Artificial Opening Endoscopic (ICD-10-PCS; 2019-07-14)
PROC: 0DJD8ZZ Inspection of Lower Intestinal Tract, Via Natural or Artificial Opening Endoscopic (ICD-10-PCS; 2019-07-14)
DX: K80.00 Calculus of gallbladder with acute cholecystitis without obstruction (principal); K85.10 Biliary acute pancreatitis without necrosis or infection; D62 Acute posthemorrhagic anemia; K64.8 Other hemorrhoids; E87.6 Hypokalemia; E83.39 Other disorders of phosphorus metabolism; E78.5 Hyperlipidemia, unspecified; I10 Essential (primary) hypertension; D18.09 Hemangioma of other sites
CPT/HCPCS: 36415; 76705; 80053; 82150; 82728; 83540; 83550; 83690; 83735; 84100; 84478; 84484; 85025; 88304; 93005; 93010; C9113; J0690; J1885; J2001; J2270; J2405; J2704; J3010; J3475; J7050; Q0162; S0020; S0028